=== PATIENT | male | born 1940 | race Caucasian/White ===

== ENCOUNTER 2022-11-09 15:11 | Inpatient (IN) | payer BC, OTHER ==
[2022-11-09 16:08] VITALS: BMI 23.8
[2022-11-09] MEDS ORDERED: SODIUM CHLORIDE 0.9% 500 ML INFUS.BAG IV ONE (17:31)
[2022-11-09] MEDS ORDERED: ACETAMINOPHEN 1000 MG/100 ML BAG IVPB ONE (17:31)
[2022-11-09 18:55] LABS: BASO % 0.3 % (0-2.0); HEMATOCRIT 34.3 % (35.4-49); HEMOGLOBIN 11.5 GM/dL (11.7-16.9); LYMPH % 7.7 % (8-40); MCH 29.8 pg (25.7-33.7); MCHC 33.4 g/dl (32.0-35.9); MEAN CELL VOLUME 89.3 fl (80-96); MEAN PLT VOLUME 8.5 fl (7.5-11.1); MONO % 8.8 % (3.8-10.2); NEUT % 83.2 % (42.8-82.8); PLATELET COUNT 221 10^3/uL (134-434); RBC 3.84 M/mm3 (4.00-5.60); RDW 13.5 % (11.9-15.9); WHITE BLOOD COUNT 8.6 K/mm3 (4.0-10.0)
[2022-11-09 20:03] LABS: CALCIUM 9.1 mg/dL (8.5-10.1)
[2022-11-09 20:04] LABS: ALBUMIN 3.6 g/dl (3.4-5.0); BLOOD UREA NITROGEN 17.8 mg/dL (7-18)
[2022-11-09 20:09] LABS: BILIRUBIN,TOTAL 0.5 mg/dL (0.2-1); CREATININE 0.9 mg/dL (0.55-1.3); TOT PROT 6.7 g/dl (6.4-8.2)
[2022-11-09] MEDS ORDERED: D5-1/2NS+10 MEQ KCL - 10 MEQ/1,000 ML INFUS.BAG IV SCH (21:15)
[2022-11-09] MEDS ORDERED: ACETAMINOPHEN 325 MG TABLET (FP) PO PRN ×2 (21:35→21:37)
[2022-11-10] MEDS ORDERED: ENOXAPARIN NA (PORCINE) 40 MG/0.4 ML DISP.SYRIN SQ ONE ×2 (05:43→12:35)
[2022-11-10] MEDS ORDERED: PANTOPRAZOLE 40 MG TABLET PO ONE ×3 (05:44→12:35)
[2022-11-10] MEDS: PANTOPRAZOLE 40 MG TABLET PO SCH ×2 (05:45→12:45)
[2022-11-10] MEDS: ENOXAPARIN NA (PORCINE) 40 MG/0.4 ML DISP.SYRIN SQ SCH ×3 (05:45→13:12)
[2022-11-10 08:20] LABS: BASO % 0.6 % (0-2.0); EOS % 0.1 % (0-4.5); HEMATOCRIT 33.9 % (35.4-49); HEMOGLOBIN 11.1 GM/dL (11.7-16.9); LYMPH % 14.2 % (8-40); MCH 29.5 pg (25.7-33.7); MCHC 32.9 g/dl (32.0-35.9); MEAN CELL VOLUME 89.7 fl (80-96); MEAN PLT VOLUME 8.1 fl (7.5-11.1); MONO % 13.1 % (3.8-10.2); PLATELET COUNT 205 10^3/uL (134-434); RBC 3.77 M/mm3 (4.00-5.60); RDW 13.8 % (11.9-15.9); WHITE BLOOD COUNT 5.3 K/mm3 (4.0-10.0)
[2022-11-10 08:42] LABS: BLOOD UREA NITROGEN 15.5 mg/dL (7-18); CALCIUM 8.6 mg/dL (8.5-10.1)
[2022-11-10 08:44] VITALS: TEMP 99.2
[2022-11-10 08:45] LABS: CREATININE 0.9 mg/dL (0.55-1.3)
[2022-11-10 16:24] VITALS: BP 133/70; PULSE 92; RESP 16
[2022-11-10] MEDS ORDERED: D5-1/2NS+10 MEQ KCL - 10 MEQ/1,000 ML INFUS.BAG IV SCH (17:06)
== END 2022-11-10 17:41 | disposition home or self-care (01) | DRG 179 ==
LOC: JER 15:11 → JERBED 11-10 16:14
PROVIDERS: ADMIT Internal Medicine; ATTEND Internal Medicine
DX: U07.1 COVID-19 (principal); D64.9 Anemia, unspecified; E86.0 Dehydration; R00.0 Tachycardia, unspecified
CPT/HCPCS: 0241U-QW; 36415; 71045-TC-FY; 80048; 80053; 84484; 85025; 85379; 99285-25